=== PATIENT | female | born 1980 | race Caucasian/White ===

== ENCOUNTER → 2017-01-21 | Outpatient (CLI) | payer OTHER ==
--- NOTE | 2017-01-21 10:30 | KCIC ---
PROCEDURE MR of the right 5th finger HISTORY Fifth finger pain. Hyperextension deformity at the MCP joint of the 5th finger. Injury on December 25, 2016 with hyperextension. Fracture diagnosed elsewhere. COMPARISON None TECHNIQUE Standard noncontrast images obtained. FINDINGS Diffuse subcutaneous edema of the 5th finger, greatest at the level of the PIP joint. Bone marrow edema within the middle phalanx and the distal aspect of the proximal phalanx. No obvious displaced fracture, but a subtle nondisplaced fracture is possible, considering there is mild motion degradation and that was diagnosed on. Side imaging. No acute disruption of collateral ligaments. The flexor tendon is intact. The central slip of the extensor mechanism is intact. The terminal tendon is less well seen but that may be due to motion degradation. No evidence of a significant joint effusion. IMPRESSION 1. Bone marrow edema/contusion involving the proximal and middle phalanges of the 5th finger. No obvious displaced fracture, but considering there is motion degradation and that a fracture was diagnosed on outside imaging, a fracture is not excluded. 2. Soft tissue edema or contusion around the 5th finger, centered at the PIP joint. 3. No evidence of ligamentous or tendinous tear. The terminal tendon of the extensor mechanism is poorly seen but that may just be due to the motion degradation. Electronically signed by: Dontae Davis MD (Jan 21, 2017 10:29:01)
== END | disposition home or self-care (01) ==
LOC: KCIC MRI 07:56
PROVIDERS: ATTEND Plastic Surgery
DX: M79.641 Pain in right hand (principal)
CPT/HCPCS: 73218